=== PATIENT | male | born 1990 | race American Indian/Alaskan Native ===

== ENCOUNTER 2017-06-26 23:55 | Emergency (ER) | payer MEDICAID, OTHER ==
[2017-06-27] MEDS ORDERED: Diphtheria,Pertussis(Acell),Tetanus Vaccine 0.5 ML SDV IM ONE (00:30)
[2017-06-27] MEDS ORDERED: Lidocaine 1% with EPINEPHrine 1:100,000 50 ML MDV SUBCUT STA (00:32)
[2017-06-27] MEDS ORDERED: Bacitracin Oint 1 GM U/D Packet TOP ONE (00:32)
--- NOTE | 2017-06-27 00:43 | EDM.PDOC ---
ED HPI GENERAL MEDICAL PROBLEM - General Chief Complaint: Laceration Stated Complaint: CUT LEFT HAND AT WORK Time Seen by Provider: 06/27/17 00:25 Source of Information: Reports: Patient History Limitations: Reports: No Limitations - History of Present Illness INITIAL COMMENTS - FREE TEXT/NARRATIVE: 26 yo male cut the dorsum of his L hand at work just before arrival. His tetanus is not UTD. Works at [employer]. 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 (see below) (none) left hand Pain Score (Numeric/FACES): 9 - Related Data Allergies Allergy/AdvReac Type Severity Reaction Status Date / Time No Known Allergies Allergy Verified 06/27/17 00:15 Home Meds: Home Meds NK [No Known Home Meds] 06/27/17 [History] Past Medical History Musculoskeletal History: Reports: Other (See Below) Other Musculoskeletal History: ingrown toe nail Neurological History: Reports: Concussion Psychiatric History: Reports: ADHD Social & Family History - Tobacco Use Smoking Status *Q: Current Every Day Smoker Years of Tobacco use: 12 Packs/Tins Daily: 1 Second Hand Smoke Exposure: No - Caffeine Use Caffeine Use: Reports: Coffee, Energy Drinks, Soda, Tea - Recreational Drug Use Recreational Drug Use: Yes Drug Use in Last 12 Months: Yes Recreational Drug Type: Reports: Marijuana/Hashish Recreational Drug Use Frequency: Weekly ED ROS GENERAL - Review of Systems Review Of Systems: See Below Constitutional: Reports: No Symptoms Musculoskeletal: Reports: No Symptoms Skin: Reports: Wound (L hand) Neurological: Reports: No Symptoms ED EXAM, SKIN/RASH Exam: See Below Exam Limited By: No Limitations General Appearance: Alert, WD/WN, No Apparent Distress Neurological: Alert, Oriented, CN II-XII Intact, Normal Cognition, No Motor/ Sensory Deficits Psychiatric: Normal Affect, Normal Mood Skin: Warm, Dry, Normal Color, No Rash, Wound/Incision Location, Skin: Upper Extremity, Left Characteristics: Other (eliptical) Associated features: Tenderness Lymphatic: No Adenopathy ED SKIN PROCEDURES - Laceration/Wound Repair Left Dorsal Hand Lac/Wound length In cm: 2 Appearance: Subcutaneous Distal NVT: Neuro & Vascular Intact, No Tendon Injury Anesthetic Type: Local Local Anesthesia - Lidocaine (Xylocaine): 1% with EPI Local Anesthetic Volume: 3cc Skin Prep: Saline Saline Irrigation (cc's): 20 Exploration/Debridement/Repair: Wound Explored, Explored to Base, No Foreign Material Found Closed with: Sutures Suture Size: other (5-0) # of Sutures: 3 Suture Type: Nylon, Interrupted, Simple, Mattress Drain Placement: No Sterile Dressing Applied: Nurse Tetanus Status Addressed: Yes Complications: No Course - Vital Signs Last Recorded V/S: Last Vital Signs Temp 35.9 C 06/27/17 00:23 Pulse 81 06/27/17 00:23 Resp 16 06/27/17 00:23 BP 140/86 06/27/17 00:23 Pulse Ox 98 06/27/17 00:23 - Orders/Labs/Meds Orders: Active Orders 24 hr Category Date Time Status Vaccines to be Administered [RC] PER UNIT ROUTINE Care 06/27/17 00:30 Active Bacitracin [Bacitracin Oint 1 GM] Med 06/27/17 00:32 Once 1 dose TOP ONETIME ONE Lidocaine 1% w/EPINEPHrine [Xylocaine 1% with Med 06/27/17 00:32 Stat EPINEPHrine 1:100,000] 5 ml SUBCUT NOW STA Meds: Medications Discontinued Medications Generic Name Dose Route Start Last Admin Trade Name Freq PRN Reason Stop Dose Admin Diphtheria/Tetanus/Acell Pertussis 0.5 ml 06/27/17 00:30 Adacel IM 06/27/17 00:31 .ONCE ONE Departure - Departure Time of Disposition: 01:00 Disposition: Home, Self-Care 01 Condition: Good Clinical Impression: Hand laceration Qualifiers: Encounter type: initial encounter Foreign body presence: without foreign body Laterality: left Qualified Code(s): S61.412A - Laceration without foreign body of left hand, initial encounter - Discharge Information Referrals: PCP,None [Primary Care Provider] - - My Orders Last 24 Hours: My Active Orders 06/27/17 00:30 Vaccines to be Administered [RC] PER UNIT ROUTINE 06/27/17 00:32 Bacitracin [Bacitracin Oint 1 GM] 1 dose TOP ONETIME ONE Lidocaine 1% w/EPINEPHrine [Xylocaine 1% with EPINEPHrine 1:100,000] 5 ml SUBCUT NOW STA - Assessment/Plan Last 24 Hours: My Active Orders 06/27/17 00:30 Vaccines to be Administered [RC] PER UNIT ROUTINE 06/27/17 00:32 Bacitracin [Bacitracin Oint 1 GM] 1 dose TOP ONETIME ONE Lidocaine 1% w/EPINEPHrine [Xylocaine 1% with EPINEPHrine 1:100,000] 5 ml SUBCUT NOW STA
[2017-06-27 01:19] VITALS: BP 140/86
== END 2017-06-27 01:04 | disposition home or self-care (01) ==
LOC: JP.ED 23:55
DX: S61.412A Laceration without foreign body of left hand, initial encounter (principal); F17.210 Nicotine dependence, cigarettes, uncomplicated; Z23 Encounter for immunization; W45.8XXA Other foreign body or object entering through skin, initial encounter; Y92.89 Other specified places as the place of occurrence of the external cause; Y99.0 Civilian activity done for income or pay
CPT/HCPCS: 12001; 90471; 90715; 99282-25; 99283-25

== ENCOUNTER 2022-04-25 19:44 | Emergency (ER) | payer MEDICAID ==
[2022-04-25 20:00] VITALS: BP 137/92; PULSE 76
== END 2022-04-25 21:37 | disposition home or self-care (01) ==
LOC: JP.ED 19:44
DX: S62.339 Displaced fracture of neck of unspecified metacarpal bone (principal); F17.210 Nicotine dependence, cigarettes, uncomplicated; Z86.16 Personal history of COVID-19; Y04.0XXA Assault by unarmed brawl or fight, initial encounter
CPT/HCPCS: 29125; 73130-RT; 99283

== ENCOUNTER 2025-02-13 11:59 | Emergency (ER) | payer MEDICAID ==
[2025-02-13] MEDS ORDERED: Naloxone 0.4 MG/ML SDV IVPUSH PRN (12:20)
[2025-02-13] MEDS: Prochlorperazine 10 MG/2 ML SDV IVPUSH ONE (12:33)
[2025-02-13 12:43] LABS: BASOPHILS ABSOLUTE AUTO 0.10 K/uL (0.00-0.10); BASOPHILS PERCENT AUTO 1.1 % (0.1-1.3); EOSINOPHILS ABSOLUTE AUTO 0.22 K/uL (0.00-0.40); EOSINOPHILS PERCENT AUTO 2.5 % (0.0-5.4); IMMATURE GRAN ABSOLUTE AUTO 0.03 K/uL (0.00-0.23); IMMATURE GRAN PERCENT AUTO 0.3 % (0.0-0.7); LYMPHOCYTES ABSOLUTE AUTO 1.31 K/uL (0.8-3.3); LYMPHOCYTES PERCENT AUTO 14.7 % (11.4-47.7); MONOCYTES ABSOLUTE AUTO 0.84 K/uL (0.20-0.90); MONOCYTES PERCENT AUTO 9.4 % (3.3-12.6); NEUTROPHILS ABSOLUTE AUTO 6.44 K/uL (1.0-7.6); NEUTROPHILS PERCENT AUTO 72.0 % (40.0-78.1); PLATELET COUNT,PLT 260 K/uL (130-375); RED BLOOD CELL COUNT 4.55 M/uL (4.14-5.76); WHITE BLOOD CELL COUNT,WBC 8.9 K/uL (3.2-11.0)
[2025-02-13 13:00] LABS: INR 1.1
[2025-02-13 13:15] LABS: A/G RATIO 0.8 (1.2-2.2); ALANINE AMINOTRANSFERASE,ALT 95 U/L (12-78); ASPARTATE AMNIOTRANSFERASE,AST 137 U/L (15-37); BILIRUBIN TOTAL 2.3 mg/dL (0.2-1.0); BLOOD UREA NITROGEN,BUN 2 mg/dL (7-18); CARBON DIOXIDE,CO2 25 mmol/L (21-32); CHLORIDE,CL 101 mmol/L (100-108); CREATININE 0.8 mg/dL (0.8-1.3); EST CRCL DRUG DOSING (CG) 128.88 mL/min; ESTIMATED GFR 118 mL/min (>60); GLUCOSE RANDOM 131 mg/dL (74-106); POTASSIUM,K 3.1 mmol/L (3.6-5.2); PRO B-TYPE NATRIUR PEPT,BNPPRO 12 pg/mL (5-125); PROTEIN TOTAL,TP 7.4 g/dL (6.4-8.2); SODIUM,NA 137 mmol/L (140-148)
[2025-02-13 13:16] LABS: TROPONIN I HIGH SENSITIVITY 10.0 pg/mL (<=60.3)
[2025-02-13] MEDS: Iopamidol 612 MG/ML 100 ML Bottle IV PRN (14:25)
[2025-02-13] MEDS: Sodium Chloride 0.9% 10 ML Syringe FLUSH PRN (14:25)
[2025-02-13 14:29] LABS: APPEARANCE,URINE CLEAR (CLEAR); GLUCOSE,URINE NEGATIVE (NEGATIVE); OCCULT BLOOD,URINE NEGATIVE (NEGATIVE)
[2025-02-13 14:36] LABS: AMPHETAMINES SCREEN, URINE NEGATIVE (NEGATIVE); METHADONE SCREEN, URINE NEGATIVE (NEGATIVE); METHAMPHETAMINES SCREEN, URINE NEGATIVE (NEGATIVE); OXYCODONE SCREEN,URINE NEGATIVE (NEGATIVE); PROPOXYPHENE SCREEN,URINE NEGATIVE (NEGATIVE); THC SCREEN,URINE 50 NG/ML PRESUMPTIVE POSITIVE (NEGATIVE)
[2025-02-13 14:40] LABS: SQUAMOUS EPITHELIAL CELLS,UR FEW /HPF; UROTHELIAL CELLS,URINE NOT SEEN /HPF
[2025-02-13 15:22] VITALS: BP 133/79; PULSE 77
== END 2025-02-13 15:37 | disposition home or self-care (01) ==
LOC: JP.ED 11:59
DX: N30.00 Acute cystitis without hematuria (principal); K21.9 Gastro-esophageal reflux disease without esophagitis; K76.0 Fatty (change of) liver, not elsewhere classified; Z86.16 Personal history of COVID-19
CPT/HCPCS: 36415; 71045; 71275; 80053; 80305; 80307; 81001; 83605; 83735; 83880; 84443; 84484; 85025; 85379; 85610; 93005; 96374; 96375; 99285; A9270; J0780; J1171; J1308; J7030; Q9967

== ENCOUNTER 2025-03-06 11:00 | Emergency (ER) | payer MEDICAID ==
[2025-03-06] MEDS ORDERED: Naloxone 0.4 MG/ML SDV IVPUSH PRN (11:39)
[2025-03-06] MEDS: Prochlorperazine 10 MG/2 ML SDV IVPUSH ONE (11:47)
[2025-03-06 11:55] LABS: BASOPHILS ABSOLUTE AUTO 0.11 K/uL (0.00-0.10); BASOPHILS PERCENT AUTO 1.1 % (0.1-1.3); EOSINOPHILS ABSOLUTE AUTO 0.07 K/uL (0.00-0.40); EOSINOPHILS PERCENT AUTO 0.7 % (0.0-5.4); IMMATURE GRAN ABSOLUTE AUTO 0.04 K/uL (0.00-0.23); IMMATURE GRAN PERCENT AUTO 0.4 % (0.0-0.7); LYMPHOCYTES ABSOLUTE AUTO 1.23 K/uL (0.8-3.3); LYMPHOCYTES PERCENT AUTO 12.0 % (11.4-47.7); MONOCYTES ABSOLUTE AUTO 0.72 K/uL (0.20-0.90); MONOCYTES PERCENT AUTO 7.0 % (3.3-12.6); NEUTROPHILS ABSOLUTE AUTO 8.10 K/uL (1.0-7.6); NEUTROPHILS PERCENT AUTO 78.8 % (40.0-78.1); PLATELET COUNT,PLT 325 K/uL (130-375); RED BLOOD CELL COUNT 5.09 M/uL (4.14-5.76); WHITE BLOOD CELL COUNT,WBC 10.3 K/uL (3.2-11.0)
[2025-03-06 11:56] LABS: BASE EXCESS VENOUS 1.5 mm/L; BICARBONATE,VENOUS 22.9 mmol/L; O2 SATURATION VENOUS 96.3; OXYHEMOGLOBIN 90.7 %; PCO2 VENOUS 29.1 mm/Hg; PH,VENOUS 7.507 (7.350-7.450); PO2 VENOUS 77.6 mm/Hg; TOTAL HEMOGLOBIN 17.8 g/dL (13.5-18.0)
[2025-03-06 12:26] LABS: A/G RATIO 0.8 (1.2-2.2); ALANINE AMINOTRANSFERASE,ALT 127 U/L (12-78); ASPARTATE AMNIOTRANSFERASE,AST 212 U/L (15-37); BILIRUBIN TOTAL 2.8 mg/dL (0.2-1.0); BLOOD UREA NITROGEN,BUN 3 mg/dL (7-18); CARBON DIOXIDE,CO2 24 mmol/L (21-32); CHLORIDE,CL 99 mmol/L (100-108); CREATININE 0.8 mg/dL (0.8-1.3); EST CRCL DRUG DOSING (CG) 128.88 mL/min; ESTIMATED GFR 118 mL/min (>60); GLUCOSE RANDOM 131 mg/dL (74-106); POTASSIUM,K 3.5 mmol/L (3.6-5.2); PROTEIN TOTAL,TP 8.4 g/dL (6.4-8.2); SODIUM,NA 138 mmol/L (140-148)
[2025-03-06] MEDS: LORazepam 2 MG/ML SDV IVPUSH PRN (14:07)
[2025-03-06 14:12] LABS: APPEARANCE,URINE SLIGHTLY CLOUDY (CLEAR)
[2025-03-06 14:14] LABS: AMPHETAMINES SCREEN, URINE NEGATIVE (NEGATIVE); METHADONE SCREEN, URINE NEGATIVE (NEGATIVE); METHAMPHETAMINES SCREEN, URINE NEGATIVE (NEGATIVE); OXYCODONE SCREEN,URINE NEGATIVE (NEGATIVE); PROPOXYPHENE SCREEN,URINE NEGATIVE (NEGATIVE); THC SCREEN,URINE 50 NG/ML PRESUMPTIVE POSITIVE (NEGATIVE)
[2025-03-06 14:18] LABS: SQUAMOUS EPITHELIAL CELLS,UR NOT SEEN /HPF; UROTHELIAL CELLS,URINE NOT SEEN /HPF
[2025-03-06] MEDS: Iopamidol 612 MG/ML 100 ML Bottle IV PRN (14:34)
[2025-03-06] MEDS: Sodium Chloride 0.9% 10 ML Syringe FLUSH ONE (14:34)
[2025-03-06] MEDS: Ondansetron 4 MG/2 ML SDV IVPUSH ONE (18:06)
[2025-03-06 22:16] VITALS: BP 150/96; PULSE 91
== END 2025-03-06 22:45 ==
LOC: JP.ED 11:00
DX: K85.20 Alcohol induced acute pancreatitis without necrosis or infection (principal); E86.0 Dehydration; F10.10 Alcohol abuse, uncomplicated; F17.200 Nicotine dependence, unspecified, uncomplicated; Z86.16 Personal history of COVID-19
CPT/HCPCS: 36415; 74177; 76705; 80053; 80305; 80307; 81001; 82803; 83605; 83690; 83735; 85025; 86140; 96361; 96374; 96375; 96376; 99285; A9270; J0780; J1171; J2060; J2405; J2470; J3360; J7030; Q9967